=== PATIENT | female | born 1955 | race Caucasian/White ===

== ENCOUNTER 2018-11-01 19:08 | Emergency (ER) | payer MEDICARE ==
[2018-11-01] MEDS ORDERED: Morphine 4 MG/ML VIAL ONE (19:35)
--- NOTE | 2018-11-01 20:30 | ULT ---
EXAM: Right lower extremity venous ultrasound HISTORY: Right lower extremity pain, redness and edema COMPARISON: None TECHNIQUE: Multiplanar grayscale and color Doppler images were obtained in a right lower extremity ve nous ultrasound. Spectral analysis of the Doppler waveforms were performed. FINDINGS: The common femoral vein, profunda femoral vein, superficial femoral vein, and popliteal vei n are normal in appearance without visible thrombus. These vessels demonstrate normal compression, flow, and augmentation. The posterior tibial vein and greater saphenous vein are patent without evidence of DVT. IMPRESSION: No evidence of DVT.
== END 2018-11-01 21:15 | disposition home or self-care (01) ==
LOC: ERS 19:08
DX: L03.115 Cellulitis of right lower limb (principal); E11.9 Type 2 diabetes mellitus without complications; I10 Essential (primary) hypertension; J44.9 Chronic obstructive pulmonary disease, unspecified; Z87.891 Personal history of nicotine dependence; Z79.82 Long term (current) use of aspirin; Z79.84 Long term (current) use of oral hypoglycemic drugs; Z79.51 Long term (current) use of inhaled steroids
CPT/HCPCS: 36416; 96374; J2270